=== PATIENT | male | born 1995 | race African-American/Black ===

== ENCOUNTER 2019-01-16 12:37 | Emergency (ER) | payer MEDICAID ==
[~2019-01-16] VITALS: Ht 182.9 cm; Wt 74.8 kg
[2019-01-16 12:48] VITALS: BP_SYST 139
--- NOTE | 2019-01-16 12:51 | NUR ---
Patient to ER bed H2 to gown for evaluation. Side rails up.
--- NOTE | 2019-01-16 12:52 | NUR ---
Dr Campbell at bedside examining patient
--- NOTE | 2019-01-16 12:59 | NUR ---
Patient given written and verbal discharge instructions and verbalizes understanding. ER MD discussed with patient the results and treatment provided. Patient in stable condition. ID arm band removed. No Rx given. Patient educated on pain management and to follow up with PMD. Pain Scale 0/10. Opportunity for questions provided and answered.
[2019-01-16 13:00] VITALS: BP_SYST 139
== END 2019-01-16 12:59 ==
LOC: SED 12:37
DX: Z13.89 Encounter for screening for other disorder (principal); F12.10 Cannabis abuse, uncomplicated; F11.10 Opioid abuse, uncomplicated
CPT/HCPCS: 99283